=== PATIENT | male | born 1940 | race American Indian/Alaskan Native ===

== ENCOUNTER 2016-08-09 03:11 | Emergency (ER) | payer MEDICARE ==
[2016-08-09 04:13] LABS: Basophils % (Auto) 0.7 % (0.0-1.8); Eosinophils % (Auto) 2.7 % (0.0-4.3); Hematocrit 31.3 % (35.5-45.6); Hemoglobin 9.7 gm/dl (11.8-15.2); Mean Corpuscular HGB Conc 31 % (32-34); Mean Corpuscular Hemoglobin 27 pg (28-32); Mean Corpuscular Volume 87 fl (84-94); Platelet Count 242 K/mm3 (140-440); Red Cell Distribution Width 15.6 % (13.2-15.2); White Blood Count 8.6 K/mm3 (4.5-11.0)
[2016-08-09 04:34] LABS: Alanine Aminotransferase 24 units/L (7-56); Albumin 3.5 g/dL (3.9-5); Albumin/Globulin Ratio 1.2 %; Alkaline Phosphatase 74 units/L (35-129); Anion Gap 22 mmol/L; BUN/Creatinine Ratio 16.66; Bilirubin,Total 0.5 mg/dL (0.1-1.2); Blood Urea Nitrogen 15 mg/dL (9-20); Calcium 8.8 mg/dL (8.4-10.2); Carbon Dioxide 19 mmol/L (22-30); Chloride 104.3 mmol/L (98-107); Glucose 127 mg/dL (75-100); Potassium 3.8 mmol/L (3.6-5.0); Sodium 141 mmol/L (137-145); Total Protein 6.5 g/dL (6.3-8.2)
[2016-08-09 08:16] LABS: Bilirubin,Urine NEG (Negative); Blood,Urine NEG (Negative); Ketones,Urine TR mg/dL (Negative); Leukocyte Esterase,Urine NEG (Negative); Mucus,Urine 3+ /HPF; Nitrite,Urine NEG (Negative)
--- NOTE | 2016-08-09 09:32 | Emergency Department Report ---
HPI - General Chief Complaint: Abdominal Pain Time Seen by Provider: 08/09/16 09:22 - HPI HPI: Chief complaint: Foot swelling HPI: Patient is a 76-year-old man with some apparent baseline dementia who presents today complaining of swelling to his feet. According to the nursing notes patient was complaining of flank pain and neck and shoulder pain. Patient states he had those earlier but they have completely resolved. Mode of arrival: [private car] Source: [Patient] and nursing notes Began: Patient states it started last several days and he hasn't occasionally from time to time Duration: Several days Context: Denies history of congestive heart failure or DVTs Quality: Pressure pain Severity: 6 out of 10 Improved with: Nothing Worsened with: Nothing Associated signs and symptoms: See above ED Past Medical Hx - Past Medical History Previous Medical History?: No - Surgical History Past Surgical History?: No - Social History Smoking Status: Former Smoker Substance Use Type: None - Medications Home Medications: Home Medications Medication Instructions Recorded Confirmed Last Taken Type Furosemide [Lasix] 20 mg PO QDAY #14 tablet 08/09/16 Unknown Rx Potassium Chloride [K-Dur] 10 meq PO QDAY #14 tablet 08/09/16 Unknown Rx ED Review of Systems ROS: Stated complaint: NECK/SHOULDER PAIN Other details as noted in HPI ROS Constitutional: No fever ENT: No uri symptoms Cardiovascular: No chest pain Respiratory: No sob or cough GI: No nausea vomiting or diarrhea : No dysuria frequency or urgency, Skin: No rash Neuro: No focal weakness or numbness Psych: No depression Jacky/lymph: edema Physical Exam - Physical Exam Vital Signs: Vital Signs 08/09/16 08/09/16 08/09/16 03:37 03:40 07:29 Temperature 97.5 F L 97.5 F L Pulse Rate 73 73 Respiratory 18 18 Rate Blood Pressure 169/67 166/72 Blood Pressure 169/67 [Right] O2 Sat by Pulse 100 100 89 Oximetry 08/09/16 08/09/16 07:30 07:40 Temperature Pulse Rate Respiratory Rate Blood Pressure 166/72 166/72 Blood Pressure [Right] O2 Sat by Pulse 91 100 Oximetry Physical Exam: GENERAL: The patient is well-developed well-nourished . Patient is asleep but easily awakened and not complaining of any problems other than his swollen feet. HEENT: Normocephalic. Atraumatic. Extraocular motions are intact. Patient has moist mucous membranes. NECK: Supple. No meningitic signs are noted. There is no adenopathy noted. CHEST/LUNGS: Clear to auscultation. There is no respiratory distress noted. HEART/CARDIOVASCULAR: Regular. There is no tachycardia. There is no gallop rub or murmur. ABDOMEN: Abdomen is soft, nontender. Patient has normal bowel sounds. There is no abdominal distention. SKIN: There is no rash. There is 1-2+ bilateral pedal edema. There is no diaphoresis. NEURO: The patient is awake, alert, and oriented to name situation and year. The patient is cooperative. The patient has no focal neurologic deficits. The patient has normal speech. MUSCULOSKELETAL: There is no tenderness or deformity. There is no limitation range of motion. There is no evidence of acute injury. ED Course Vital Signs 08/09/16 08/09/16 08/09/16 03:37 03:40 07:29 Temperature 97.5 F L 97.5 F L Pulse Rate 73 73 Respiratory 18 18 Rate Blood Pressure 169/67 166/72 Blood Pressure 169/67 [Right] O2 Sat by Pulse 100 100 89 Oximetry 08/09/16 08/09/16 07:30 07:40 Temperature Pulse Rate Respiratory Rate Blood Pressure 166/72 166/72 Blood Pressure [Right] O2 Sat by Pulse 91 100 Oximetry ED Medical Decision Making - Lab Data Result diagrams: 08/09/16 03:54 08/09/16 03:54 Laboratory Tests 08/09/16 07:55 Urine pH 5.0 Urine Glucose (UA) Neg Urine Ketones Tr Ur Leukocyte Esterase Neg Urine WBC (Auto) 1.0 Urine RBC (Auto) 5.0 - Radiology Data Radiology results: report reviewed (bilateral lower extremity Doppler showed no DVT.) interpreted by me: Chest x-ray shows no acute process. Critical care attestation.: If time is entered above; I have spent that time in minutes in the direct care of this critically ill patient, excluding procedure time. ED Disposition Clinical Impression: Pedal edema Disposition: DISCHARGED TO HOME OR SELFCARE Is pt being admited?: No Does the pt Need Aspirin: No Condition: Stable Instructions: Leg Edema (ED) Prescriptions: Furosemide [Lasix] 20 mg PO QDAY #14 tablet Potassium Chloride [K-Dur] 10 meq PO QDAY #14 tablet Referrals: PRIMARY CARE, [Primary Care Provider] - 3-5 Days LOPEZ ABDI MD [Staff Physician] - 3-5 Days Time of Disposition: 12:19
--- NOTE | 2016-08-09 10:17 | XRay Report ---
ROUTINE CHEST, TWO VIEWS: HISTORY: Hypertension. There is mild hyperinflation. No evidence for infiltrate, pleural effusion or pneumothorax. Normal heart size and pulmonary vascularity. Mild thoracic spondylosis is noted. IMPRESSION: Mild hyperinflation. No acute process.
[2016-08-10 12:36] VITALS: BP 160/89
== END 2016-08-10 12:43 | disposition home or self-care (01) ==
LOC: ED 03:11 → EEVIPCON 03:11 → ED 08-10 12:43
DX: R60.0 Localized edema (principal); Z87.891 Personal history of nicotine dependence
CPT/HCPCS: 36415; 71020; 80053; 81001; 83880; 85025; 93970